=== PATIENT | male | born 1995 | race Hispanic/Latino ===

== ENCOUNTER 2025-04-24 18:44 | Emergency (ER) | payer SELFPAY ==
[~2025-04-24] VITALS: Ht 165.1 cm; Wt 78.0 kg
[2025-04-24 18:46] VITALS: BP 137/94; PULSE 69; RESP 20; TEMP 98.1
--- NOTE | 2025-04-24 19:11 | ERN ---
ED Note History of Present Illness Stated Complaint: HTN,HEADACHE,CP Chief Complaint: Multiple Complaints Time Seen by MD: 18:49 Dictation: IS A 29-YEAR-OLD MALE WHO IS A [employer] AND WORKS OUT OF [facility]. 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 COMPLAINT IS HE HAS A ERECTILE DYSFUNCTION IN HIS NOT HAD AN ERECTION IN 30-40 DAYS AND USED TO SEE DR. PATEL AND WAS BE GIVEN VIAGRA. THIRD COMPLAINT IS HE WOULD LIKE ME TO WORK HIM UP FOR A GENERALIZED HEADACHE THAT HE IS OFF AND ON FOR THE LAST TWO WEEKS. STATES HE HAS NOT TAKEN ANYTHING PRIOR TO ARRIVAL FOR PAIN TODAY NIH IS 0. FINALLY HE HAS HAS BURNING BEHIND HIS EYES THAT HE HAS HAD FOR SEVERAL WEEKS WHEN HE WAS OUT WORKING IN THE [employer] STATES HE NEVER WENT TO THE EMERGENCY ROOM AND [facility] TO HAVE ANY THIS PURSUED. HE HAS NO PRIMARY CARE DOCTOR AT THIS TIME. NIH IS 0, GAIT IS STEADY TO TRIAGE IN TWO THE ROOM. 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 13 POINT REVIEW OF SYSTEMS ASSESSED AND ALL NEGATIVE EXCEPT FOR ABOVE. Initial Vital Sign VS Vital Signs Date Time Temp Pulse Resp B/P (MAP) Pulse Ox O2 Delivery O2 Flow Rate FiO2 04/24/25 18:46 98.1 69 20 137/94 99 Room Air Physical Exam Dictation VITAL SIGNS REVIEWED GENERAL APPEARANCE: ALERT, ORIENTED X 3, NO ACUTE DISTRESS, WELL DEVELOPED, NOURISHED. HEAD AND FACE: NON-TRAUMATIC. EYES: PERRL, PINK CONJUNCTIVAS, EYELID NO TRAUMA, ANTERIOR CHAMBER WITH ARCUS SENILIS. EARS: PINNAS INTACT AND NO SIGNS OF TRAUMA OR ERYTHEMA EAR CANALS CLEAR AND NO DISCHARGE TM NO ERYTHEMA NOSE: NO DISCHARGE, NO BLEEDING. OROPHARYNX: MOUTH NORMAL, TONGUE PINK, PHARYNX CLEAR,NO ERYTHEMA, TONSILS NO EXUDATES, NO ABSCESSES NOTED, MUCOUS MEMBRANE MOIST NECK: SUPPLE, NON-TENDER, NO THYROMEGALY, NO MASSES, NO JVD, NO BRUITS BREAST:DEFERRED CHEST:NO TENDERNESS, NO CREPITUS, NO PARADOXICAL MOVEMENT, NO RETRACTIONS LUNGS:CLEAR, WELL-VENTILATED, SYMMETRIC, NO RALES, NO WHEEZING, NO RHONCHI, NO STRIDOR, GOOD BREATH SOUNDS BILATERALLY HEART: REGULAR RATE, REGULAR RHYTHM, NO MURMUR, NO GALLOPS VASCULAR: NO PERIPHERAL EDEMA, ABDOMEN: SOFT, POSITIVE BOWEL SOUNDS, NONDISTENDED, NO GUARDING, NONTENDER, NO REBOUND, NO MASSES NO HEPATOMEGALY, NO SPLENOMEGALY, NO FREITAS'S SIGN, NO HERNIAS. RECTAL: DEFERRED GENITAL: DEFERRED NEUROLOGICAL: NORMAL SPEECH, MOTOR FUNCTION INTACT, SENSORY FUNCTION INTACT NIH IS 0 SPEECH IS CLEAR MUSCULOSKELETAL: NECK NONTENDER, FULL RANGE OF MOTION, BACK NONTENDER, FULL RANGE OF MOTION, EXTREMITIES: NONTENDER, FULL RANGE OF MOTION SKIN: COLOR PINK, DRY, NO TURGOR, NO RASH, NO LACERATIONS, NO ABRASIONS, NO CONTUSIONS. LYMPHATIC: DEFERRED Results (Laboratory/Radiology) Laboratory/Radiology Laboratory Tests Test 04/24/25 19:16 White Blood Count 8.6 K/uL (4.8-10.8) Red Blood Count 5.69 MIL/uL (4.50-6.20) Hemoglobin 16.4 g/dL (14.0-18.0) Hematocrit 48.4 % (42-54) Mean Corpuscular Volume 85.1 fL (79-99) Mean Corpuscular Hemoglobin 28.8 pg (27.0-33.0) Mean Corpuscular Hemoglobin Concent 33.9 g/dL (32.0-36.0) Red Cell Distribution Width 13.1 % (11.0-15.5) Platelet Count 299 K/uL (130-400) Mean Platelet Volume 9.1 fL (7.5-10.5) Immature Granulocyte % (Auto) 0.6 % (0-1) Neutrophils (%) (Auto) 66.5 % (40.0-77.0) Lymphocytes (%) (Auto) 21.4 % (21.0-51.0) Monocytes (%) (Auto) 9.4 % (3.0-13.0) Eosinophils (%) (Auto) 1.5 % (0.0-8.0) Basophils (%) (Auto) 0.6 % (0.0-5.0) Neutrophils # (Auto) 5.7 K/uL (1.8-7.7) Lymphocytes # (Auto) 1.8 K/uL (1.0-4.8) Monocytes # (Auto) 0.8 K/uL (0.1-1.0) Eosinophils # (Auto) 0.13 K/uL (0.00-0.70) Basophils # (Auto) 0.05 K/uL (0.00-0.20) Absolute Immature Granulocyte (auto 0.05 K/uL (0-1) Nucleated Red Blood Cells 0.0 % (0.0-0.19) Sodium Level 139 mmol/L (136-145) Potassium Level 4.0 mmol/L (3.5-5.1) Chloride Level 101 mmol/L (101-111) Carbon Dioxide Level 31 mmol/L (21-32) Blood Urea Nitrogen 17 mg/dL (7-18) Creatinine 0.9 mg/dL (0.5-1.3) Glomerular Filtration Rate Calc 119 mL/min (>90) Random Glucose 116 mg/dL (70-105) H Total Calcium 8.8 mg/dL (8.5-10.1) Troponin I High Sensitivity 8 ng/L (4-75) Labs Reviewed?: Yes EKG: (+) NSR EKG Comment: 2000/EKG SINUS BRADYCARDIA/HEART RATE 58/AXIS NORMAL/NO ECTOPY ED Course ED Course Orders Procedure Category Date Status Time Ibuprofen 800 Mg Tab PHA 04/24/25 Complete (Motrin) 19:30 Cbc With Differential LAB 04/24/25 Complete 19:06 12 Lead Ekg Tracing- EKG 04/24/25 Complete Technical 19:06 Troponin I High LAB 04/24/25 Complete Sensitivity 19:06 Basic Metabolic Panel LAB 04/24/25 Complete 19:06 Current Medications Medications (Trade) Dose Ordered Sig/Neelima Route PRN Reason Start Time Stop Time Status Last Admin Dose Admin Ibuprofen (moTRIN) 800 mg ONCE ONCE PO 04/24/25 19:30 04/24/25 19:40 DC 04/24/25 19:44 Vital Signs Date Time Temp Pulse Resp B/P (MAP) Pulse Ox O2 Delivery O2 Flow Rate FiO2 04/24/25 18:46 98.1 69 20 137/94 99 Room Air 1909/I ADVISED PATIENT THAT I WOULD BE UNABLE TO PURSUE ALL OF HIS COMPLAINTS IN THE CONTEXT OF AN EMERGENCY ROOM VISIT. SOME THIS COMPLAINTS OF GOT CHRONICITY OF MANY YEARS. I WOULD WORKUP THE MOST URGENT WHICH WOULD BE THE CHEST PAIN AND GIVE HIM SOMETHING FOR HIS HEADACHE HE WAS GIVEN A LIST OF THE PRIMARY CARE DOCTORS ON STAFF TO FOLLOW UP WITH NEXT WEEK FOR MANAGEMENT. 2034/PATIENT DISCHARGED HOME NEUROLOGICALLY INTACT, NO CHEST PAIN AT THIS TIME. HE IS AWARE HE WILL NEED TO FOLLOW UP WITH [facility] FOR HIS ED PRIMARY CARE DOCTOR FOR HIS CHEST PAIN AND HEADACHE. TOLD TO INCREASE HIS FLUIDS. GIVEN THE THE LIST OF DOCTORS ON STAFF FOR FOLLOW UP HEART Score Response (Comments) Value History: Low suspicion (0) 0 EKG: Normal 0 Age: < 45yrs (0) 0 Risk Factors: No known risk factors (0) 0 Initial Troponin: Normal limit (0) 0 Total 0 Medical Decision Making MDM MEDICAL DISCHARGE MAKING BASED ON CARDIAC WORKUP TO INCLUDE EKG. EKG NORMAL SINUS BRADYCARDIA CARDIAC WORKUP COMPLETELY NEGATIVE PATIENT GIVEN PAIN MEDS FOR HIS ATYPICAL CHEST PAIN AND HEADACHE TOLD FOLLOW UP WITH HIS PRIMARY CARE DOCTOR FOR MANAGEMENT AND GIVEN A LIST DX & DISP Disposition: Discharge Departure Impression: Primary Impression: Atypical chest pain Additional Impression: Acute headache Condition: Stable Scripts Ibuprofen (Ibuprofen 800 mg Tab) 800 Mg Tab 800 MG PO Q8H PRN for fever or pain, #30 TAB 0 Refills Prov: BRENNA BENNETT RESEARCH INVESTIGATOR 04/24/25 Additional Instructions: FOLLOW-UP WITH PRIMARY CARE PROVIDER IN 1 TO 2 DAYS. TAKE MEDICATIONS DIRECTED HERE IN THE EMERGENCY ROOM. OKAY TO CONTINUE HOME MEDICATIONS UNLESS OTHERWISE DISCUSSED DURING YOUR VISIT IN THE EMERGENCY ROOM TODAY. RETURN TO YOUR NEAREST EMERGENCY ROOM IF SYMPTOMS WORSEN OR IF THERE IS NO IMPROVEMENT. CALL 911 IF YOU NEED IMMEDIATE ASSISTANCE. TAKE TYLENOL OR MOTRIN [id number] NEEDED AND IF NO CONTRAINDICATIONS ARE PRESENT. INCREASE ORAL HYDRATION. A WOUND CULTURE OR URINE CULTURE WAS ORDERED HERE IN THE EMERGENCY ROOM DEPARTMENT PLEASE FOLLOW-UP WITH PRIMARY CARE PROVIDER AND ADVISE THEM TO GET REPEAT PORTS FROM OUR FACILITY. IF YOU HAD ANY HENRIETTA WRAP/SPLINTS THAT WERE APPLIED HERE, PLEASE DO NOT REMOVE THEM UNTIL YOU SEE YOUR PRIMARY CARE OR SPECIALTY. TAKE IBUPROFEN NEEDED FOR PAIN. CALL UROLOGIST FOR AN APPOINTMENT IN THE NEXT SEVERAL DAYS FOR YOUR COMPLAINT OF ERECTILE DYSFUNCTION. SEE ONE OF THE DOCTORS ON THE LIST PROVIDED YOU FOR ALL YOUR OTHER CONCERNS Referrals: JOSE QUINTERO MD (PCP) VIVIAN HDEZ MD Time of Disposition: 20:38 I have reviewed the case, and I agree with, Diagnosis and Plan BRENNA BENNETT RESEARCH INVESTIGATOR Apr 24, 2025 19:11
[2025-04-24 19:27] LABS: IMMATURE GRANULOCYTE ABSOLUTE 0.05 K/uL (0-1); NUCLEATED RED BLOOD CELLS 0.0 % (0.0-0.19); PLATELET COUNT (AUTO) 299 K/uL (130-400); RED BLOOD CELL COUNT(AUTO) 5.69 MIL/uL (4.50-6.20); RED CELL DISTRIBUTION WIDTH 13.1 % (11.0-15.5); WHITE BLOOD COUNT (AUTO) 8.6 K/uL (4.8-10.8)
[2025-04-24 19:36] LABS: CREATININE 0.9 mg/dL (0.5-1.3); GLOMERULAR FILTR. RATE CALC 119.0 mL/min (>90); GLUCOSE,RANDOM 116.0 mg/dL (70-105); SODIUM SERUM 139.0 mmol/L (136-145); UREA NITROGEN, BLOOD 17.0 mg/dL (7-18)
--- NOTE | 2025-04-24 20:05 | EKG ---
[facility] Test Date: 2025-04-24 Test Time: 20:00:08 Pat Name: SHABANA ALTAMIRANO Department: ED Room: Gender: Manager Pricing: [facility] : 1995 Requested By: BRENNA BENNETT Order Number: [id number] Reading MD: Paul Turcios Measurements Intervals [place] Rate: 58 P: 9 CT: 174 QRS: 38 QRSD: 88 T: 24 QT: 384 QTc: 379 Interpretive Statements Sinus rhythm No previous ECG available for comparison Electronically Signed On 04-26-2025 13:07:56 SHIFT MANAGER by Paul Turcios Please click the below link to view image of tracing.
[2025-04-24] MEDS ORDERED: IBUP-2077 PO (20:39)
== END 2025-04-24 20:59 | disposition home or self-care (01) ==
LOC: EDH 18:44
DX: R07.89 Other chest pain (principal); R51.9 Headache, unspecified; Z98.890 Other specified postprocedural states
CPT/HCPCS: 36415; 80048; 84484; 85025; 93005; 99284